=== PATIENT | female | born 1965 | race Caucasian/White ===

== ENCOUNTER 2019-08-27 09:58 | Day surgery (SDC) | payer OTHER ==
[2019-08-26 14:18] VITALS: BMI 31.6
[2019-08-27 12:36] VITALS: BP 116/78; PULSE 64; TEMP 98.4
--- NOTE | 2019-08-28 16:39 | PATH ---
Surgical Pathology Report Patient Name: THERON ALEXANDER [facility]. Rec. #: [id number] /Age/Gender: 1965 (Age: 53) / F Account: [id number] Location: U-ENDOSCOPY Taken: 08/27/2019 Received: 08/27/2019 Reported: 08/28/2019 Physicians: Jenny Kim M.D. Specimen(s) Received A: STOMACH B: DUODENUM Clinical History Reflux Postoperative diagnosis: Esophagitis Final Diagnosis A. STOMACH, BIOPSY: GASTRIC MUCOSA WITH CHRONIC GASTRITIS. FOCAL REACTIVE GASTROPATHY PRESENT. IMMUNOSTAIN FOR H. PYLORI IS NEGATIVE. NEGATIVE FOR INTESTINAL METAPLASIA. B. LABELED "DUODENUM", BIOPSY: GASTROESOPHAGEAL JUNCTIONAL MUCOSA WITH REFLUX ESOPHAGITIS AND INTESTINAL METAPLASIA. NEGATIVE FOR DYSPLASIA. Comment: No small intestinal mucosa present in this material. Findings may represent Merino's esophagus in the proper clinical settings. Suggest clinical correlation. Electronically Signed Juni Arias M.D. Gross Description A. Received in formalin, labeled "stomach biopsy" are 3 narayan, irregular portions of soft tissue averaging 0.3 cm. in greatest dimension. The specimens are submitted in toto in one cassette. B. Received in formalin, labeled "duodenal biopsy" are 4 narayan, irregular portions of soft tissue ranging from 0.2-0.3 cm. in greatest dimension. The specimens are submitted in toto in one cassette. 08/27/2019 saudi08/27/2019
== END 2019-08-27 12:45 | disposition home or self-care (01) ==
LOC: JASU-ENDO 09:58
PROVIDERS: ATTEND Internal Medicine Gastroenterology
PROC: 0DB58ZX Excision of Esophagus, Via Natural or Artificial Opening Endoscopic, Diagnostic (ICD-10-PCS; 2019-08-27)
PROC: 0DB68ZX Excision of Stomach, Via Natural or Artificial Opening Endoscopic, Diagnostic (ICD-10-PCS; principal; 2019-08-27 09:30)
DX: K29.50 Unspecified chronic gastritis without bleeding (principal); K44.9 Diaphragmatic hernia without obstruction or gangrene; K31.9 Disease of stomach and duodenum, unspecified; K21.0 Gastro-esophageal reflux disease with esophagitis; I10 Essential (primary) hypertension; E78.00 Pure hypercholesterolemia, unspecified; E55.9 Vitamin D deficiency, unspecified